=== PATIENT | female | born 2000 | race Caucasian/White ===

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

== ENCOUNTER 2020-08-14 10:47 | Emergency (ER) | payer OTHER ==
[2020-08-14 11:00] VITALS: BMI 23.9
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
[2020-08-14] MEDS ORDERED: SODIUM CHLORIDE 1,000 ML IV STA (11:20)
[2020-08-14] MEDS ORDERED: METOCLOPRAMIDE HCL INJECTION 10 MG/2 ML VIAL IVPB ONE (11:20)
[2020-08-14] MEDS ORDERED: ACETAMINOPHEN 1000 MG/100 ML VIAL (NON FORMULARY) IVPB ONE (11:20)
--- NOTE | 2020-08-14 11:23 | PDOC ---
History of Present Illness - General Chief Complaint: Vomiting/Diarrhea Stated Complaint: VOMITING/NAUSEA Time Seen by Provider: 08/14/20 11:02 History Source: Patient Exam Limitations: No Limitations Past History - Travel History Traveled outside of the country in the last 30 days: No Close contact w/someone who was outside of country & ill: No - Medical History Allergies/Adverse Reactions: Allergies Allergy/AdvReac Type Severity Reaction Status Date / Time No Known Allergies Allergy Verified 08/14/20 10:54 Home Medications: Ambulatory Orders Ondansetron [Zofran Odt -] 4 mg SL TID #10 tab.sl 08/14/20 COPD: No - Reproductive History Is Patient Now?: Yes - Immunization History Immunization Up to Date: Yes - Psycho-Social/Smoking History Smoking History: Current every day smoker Have you smoked in the past 12 months: Yes Number of Cigarettes Smoked Daily: 0 Information on smoking cessation initiated: Yes - Substance Abuse Hx (Audit-C & DAST Scrn) How often the patient has a drink containing alcohol: Monthly or less Number of drinks the patient has on a typical day: 1 or 2 How often the patient has six or more drinks on one occasion: Never Score: In Men: 4 or > Positive; In Women: 3 or > Positive: 1 Screen Result (Pos requires Nsg. Audit-10AR): Negative In the last yr the pt used illegal drug/Rx for NonMed reason: No Score: Yes response is considered Positive: 0 Screen Result (Positive result requires Nsg. DAST-10): Negative Review of Systems - Review of Systems Able to Perform ROS?: Yes Comments:: 08/14/20 11:17 CONSTITUTIONAL: Absent: fever, chills, diaphoresis, generalized weakness, malaise, loss of appetite HEENT: Absent: rhinorrhea, nasal congestion, throat pain, throat swelling, difficulty swallowing, mouth swelling, ear pain, eye pain, visual Changes CARDIOVASCULAR: Absent: chest pain, loss of consciousness, palpitations, irregular heart rate, peripheral edema RESPIRATORY: Absent: cough, shortness of breath, dyspnea with exertion, orthopnea, wheezing, stridor, hemoptysis GASTROINTESTINAL: Present: abdominal pain, nausea, vomiting. Absent: abdominal distension, diarrhea, constipation, melena, hematochezia GENITOURINARY: Absent: dysuria, frequency, urgency, hesitancy, hematuria, flank pain, genital pain MUSCULOSKELETAL: Absent: myalgia, arthralgia, joint swelling SKIN: Absent: rash, itching, pallor HEMATOLOGIC/IMMUNOLOGIC: Absent: easy bleeding, easy bruising, lymphadenopathy, frequent infections ENDOCRINE: Absent: unexplained weight gain, unexplained weight loss, heat intolerance, cold intolerance NEUROLOGIC: Absent: headache, focal weakness or paresthesias, dizziness, unsteady gait, seizure, mental status changes, bladder or bowel incontinence PSYCHIATRIC: Absent: anxiety, depression, suicidal or homicidal ideation, hallucinations. Is the patient limited [place] proficient: No *Physical Exam - Vital Signs Last Vital Signs Temp Pulse Resp BP Pulse Ox 98.2 F 80 18 125/68 98 08/14/20 10:55 08/14/20 10:55 08/14/20 10:55 08/14/20 10:55 08/14/20 10:55 - Physical Exam 08/14/20 11:18 GENERAL: Well developed, well nourished. Awake and alert. No acute distress. HEENT: Normocephalic, atraumatic. PERRLA, EOMI. No conjunctival pallor. Sclera are non- icteric. Moist mucous membranes. NECK: Supple. Full ROM. CARDIOVASCULAR: Regular rate and rhythm. No murmurs, rubs, or gallops. Distal pulses are 2+ and symmetric. PULMONARY: No evidence of respiratory distress. Lungs clear to auscultation bilaterally. No wheezing, rales or rhonchi. ABDOMINAL: Diffuse TTP of abdomen with focal LUQ pain. Soft. Non-distended. Normoactive bowel sounds. MUSCULOSKELETAL Normal range of motion at all joints. No bony deformities or tenderness. No CVA tenderness. EXTREMITIES: No cyanosis. No clubbing. No edema. No calf tenderness. SKIN: Warm and dry. Normal capillary refill. No rashes. No jaundice. NEUROLOGICAL: Alert, awake, appropriate. Cranial nerves 2-12 intact. No deficits to light t ouch and temperature in face, upper extremities and lower extremities. No motor deficits in the in face, upper extremities and lower extremities. Normoreflexic in the upper and lower extremities. Normal speech. Toes are down-going bilaterally. Gait is normal without ataxia. PSYCHIATRIC: Cooperative. Good eye contact. Appropriate mood and affect. ED Treatment Course - LABORATORY CBC & Chemistry Diagram: 08/14/20 11:41 08/14/20 11:41 Medical Decision Making - Medical Decision Making 08/14/20 11:21 The patient is a 19-year-old female G1, P0, LMP 06/07/2020, presents to the ER with nausea vomiting and abdominal pain. She states her symptoms have been going on for approximately 2 weeks, however the pain worsened this morning so she came to the ER for evaluation. She states she has been throwing up yellow bile. She is unable to keep anything down. She has not yet seen an DIETARY DIRECTOR for this . Denies fevers, chills, diarrhea, constipation, chest pain and difficulty breathing, dysuria, hematuria, vaginal discharge and vaginal bleeding. A/P: Hyperemesis On exam patient is diffusely tender to the abdomen with worsening pain in the left upper quadrant consistent with vomiting. Will obtain basic labs, ultrasound Fluids, Reglan, Benadryl and IV Tylenol ordered for pain control Reevaluate 08/14/20 13:19 Ultrasound shows IUP 9 weeks 5 days with heart rate of 156. No ovarian cysts. Lab work unremarkable, urine negative. Patient tolerating p.o. after medication Discharge home with DIETARY DIRECTOR follow-up. I discussed the physical exam findings, ancillary test results and final diagnoses with the patient. I answered all of the patient's questions. The patient was satisfied with the care received and felt comfortable with the discharge plan and treatment plan. The Patient agrees to follow up with the primary care physician/specialist within 24-72 hours. Return precautions were given. Discharge - Discharge Information Problems reviewed: Yes Clinical Impression/Diagnosis: Hyperemesis gravidarum Condition: Stable Disposition: HOME - Admission No - Follow up/Referral Referrals: Nick Disla MD [Primary Care Provider] - Dario Delong MD [Staff Physician] - - Patient Discharge Instructions Patient Printed Discharge Instructions: DI for Hyperemesis Gravidarum Additional Instructions: You were seen for your nausea and vomiting today. You were with a single within the uterus with a heart rate of 156. You may take Zofran every 8 hours needed for nausea or vomiting. Please drink plenty of fluids. Eat bland foods today to prevent vomiting. Please follow-up with DIETARY DIRECTOR. A referral has been provided to you. Trying follow-up within the week. Return to the ER for vaginal bleeding, increasing nausea vomiting, abdominal pain if you have any changes in your symptoms. - Post Discharge Activity
[2020-08-14] MEDS ORDERED: METOCLOPRAMIDE HCL INJECTION 10 MG/2 ML VIAL ONE (11:53)
[2020-08-14] MEDS ORDERED: ACETAMINOPHEN INJECTION 100 ML IVPB ONE (11:54)
[2020-08-14 12:36] LABS: BASO % 0.5 % (0-2.0); EOS % 0.8 % (0-4.5); HEMATOCRIT 39.3 % (32.4-45.2); HEMOGLOBIN 13.2 GM/dL (10.7-15.3); LYMPH % 17.1 % (8-40); MCH 30.8 pg (25.7-33.7); MCHC 33.6 g/dl (32.0-36.0); MEAN CELL VOLUME 91.6 fl (80-96); MEAN PLT VOLUME 9.3 fl (7.5-11.1); MONO % 6.8 % (3.8-10.2); NEUT % 74.8 % (42.8-82.8); PLATELET COUNT 248 K/MM3 (134-434); RBC 4.29 M/mm3 (3.60-5.2); RDW 13.7 % (11.6-15.6); WHITE BLOOD COUNT 7.2 K/mm3 (4.0-10.0)
[2020-08-14 12:39] LABS: PH,URINE 7.5 (5.0-8.0); URINE APPEARANCE CLEAR; URINE BILIRUBIN NEGATIVE (NEGATIVE); URINE COLOR YELLOW; URINE GLUCOSE (UA) NEGATIVE (NEGATIVE); URINE KETONE NEGATIVE (NEGATIVE); URINE LEUK ESTERASE NEGATIVE (NEGATIVE); URINE NITRITE NEGATIVE (NEGATIVE); URINE PROTEIN NEGATIVE (NEGATIVE); URINE UROBILINOGEN 0.2 mg/dL (0.2-1.0)
[2020-08-14 13:13] LABS: ALBUMIN 3.8 g/dl (3.4-5.0); BILIRUBIN,TOTAL 0.4 mg/dL (0.2-1); BLOOD UREA NITROGEN 6.6 mg/dL (7-18); CALCIUM 9.5 mg/dL (8.5-10.1); CREATININE 0.6 mg/dL (0.55-1.3); POTASSIUM 4.2 mmol/L (3.5-5.1); TOT PROT 7.5 g/dl (6.4-8.2)
[2020-08-14 13:35] VITALS: BP 122/68; PULSE 72; TEMP 98.6
== END 2020-08-14 13:35 | disposition home or self-care (01) ==
LOC: JER 10:47
PROC: 3E0333Z Introduction of Anti-inflammatory into Peripheral Vein, Percutaneous Approach (ICD-10-PCS; principal; 2020-08-14)
PROC: 3E033GC Introduction of Other Therapeutic Substance into Peripheral Vein, Percutaneous Approach (ICD-10-PCS; 2020-08-14)
PROC: 3E0337Z Introduction of Electrolytic and Water Balance Substance into Peripheral Vein, Percutaneous Approach (ICD-10-PCS; 2020-08-14)
DX: O21.1 Hyperemesis gravidarum with metabolic disturbance (principal)
CPT/HCPCS: 36415; 76817-TC; 80053; 81003; 84702; 85025; 87086; 99284-25; J0131

== ENCOUNTER 2021-02-28 13:15 | Inpatient (IN) | payer OTHER ==
[2021-02-28 16:10] LABS: URINE BARBITURATES NEGATIVE ng/ml (CUTOFF=200)
[2021-02-28 16:12] LABS: COCAINE, UR NEGATIVE ng/ml (CUTOFF=300); METHADONE, UR NEGATIVE ng/ml (CUTOFF=300); OPIATES, URI NEGATIVE ng/ml (CUTOFF=300); PHENCYCLIDINE,URINE NEGATIVE ng/ml (CUTOFF=25); URINE AMPHETAMINES NEGATIVE ng/ml (CUTOFF=500); URINE BENZODIAZEPINES NEGATIVE ng/ml (CUTOFF=200)
[2021-02-28] MEDS ORDERED: DINOPROSTONE 10 MG VAGINAL SUPPOSITORY VG ONE (16:24)
[2021-02-28 17:07] VITALS: BMI 35.2
[2021-02-28] MEDS: DEXTROSE 5%-LACTATED RINGERS 1,000 ML IV SCH (17:10)
[2021-02-28 17:17] LABS: BASO % 0.4 % (0-2.0); EOS % 1.5 % (0-4.5); HEMATOCRIT 32.5 % (32.4-45.2); HEMOGLOBIN 10.6 GM/dL (10.7-15.3); LYMPH % 17.9 % (8-40); MCH 28.2 pg (25.7-33.7); MCHC 32.6 g/dl (32.0-36.0); MEAN CELL VOLUME 86.4 fl (80-96); MEAN PLT VOLUME 9.5 fl (7.5-11.1); MONO % 11.4 % (3.8-10.2); NEUT % 68.8 % (42.8-82.8); PLATELET COUNT 320 K/MM3 (134-434); RBC 3.75 M/mm3 (3.60-5.2); RDW 15.7 % (11.6-15.6); WHITE BLOOD COUNT 7.9 K/mm3 (4.0-10.0)
[2021-02-28 17:21] LABS: URINE APPEARANCE CLEAR; URINE BILIRUBIN NEGATIVE (NEGATIVE); URINE COLOR YELLOW; URINE GLUCOSE (UA) NEGATIVE (NEGATIVE); URINE KETONE NEGATIVE (NEGATIVE); URINE LEUK ESTERASE NEGATIVE (NEGATIVE); URINE NITRITE NEGATIVE (NEGATIVE); URINE PROTEIN NEGATIVE (NEGATIVE); URINE UROBILINOGEN 0.2 mg/dL (0.2-1.0)
[2021-02-28 17:23] LABS: INR 0.92 (0.83-1.09); PROTHROMBIN TIME (PATIENT) 11.4 SEC (9.7-13.0)
[2021-02-28 17:26] LABS: ACTIVATED PTT 23.2 SECONDS (25.2-36.5)
[2021-02-28 17:36] LABS: CALCIUM 9.2 mg/dL (8.5-10.1)
[2021-02-28 17:41] LABS: CREATININE 0.6 mg/dL (0.55-1.3)
[2021-02-28 17:43] LABS: BLOOD UREA NITROGEN 6.9 mg/dL (7-18)
[2021-02-28] MEDS ORDERED: PENICILLIN G POTASSIUM 5,000,000 (5Mm) UNIT VIAL IVPB ONE ×2 (17:53→18:00)
[2021-02-28] MEDS ORDERED: PENICILLIN G POTASSIUM 20,000,000 (20Mm) UNITS VIAL IVPB ONE (17:53)
[2021-02-28 18:33] LABS: HIV INTERPRETATION NEGATIVE (NEGATIVE)
[2021-02-28] MEDS: PENICILLIN G POTASSIUM 2,500,000 UNIT in DEXTROSE 5%-WATER - 100 ML IVPB SCH (22:00)
[2021-03-01] MEDS: PENICILLIN G POTASSIUM 2,500,000 UNIT in DEXTROSE 5%-WATER - 100 ML IVPB SCH ×3 (02:00→09:49)
[2021-03-01] MEDS ORDERED: BUTORPHANOL TARTRATE 2 MG/ML VIAL IVPB ONE (05:10)
[2021-03-01] MEDS ORDERED: PROMETHAZINE HCL 25 MG/1 ML VIAL IVPB ONE (05:10)
[2021-03-01] MEDS ORDERED: OXYTOCIN 30 UNITS in 0.9% NS 30 UNIT/500 ML INFUS.BAG IVPB ONE (05:28)
[2021-03-01] MEDS ORDERED: BUTORPHANOL TARTRATE 2 MG/ML VIAL ONE (05:28)
[2021-03-01] MEDS ORDERED: PROMETHAZINE HCL 25 MG/1 ML VIAL ONE (05:29)
[2021-03-01] MEDS ORDERED: OXYTOCIN 30 UNITS in 0.9% NS 30 UNIT/500 ML INFUS.BAG IVPB SCH (05:30)
[2021-03-01] MEDS: DEXTROSE 5%-LACTATED RINGERS 1,000 ML IV SCH (05:51)
[2021-03-01] MEDS: ELECTROLYTE-148 SOLN 1,000 ML IV SCH ×2 (07:55→09:58)
[2021-03-01] MEDS ORDERED: PCA PUMP NR ONE (07:55)
[2021-03-01] MEDS ORDERED: NALOXONE HCL 0.4 MG/ML VIAL IVPUSH PRN (08:04)
[2021-03-01] MEDS ORDERED: BUPIVACAINE HCL/PF 0.25% (2.5MG/ML) 10 ML VIAL ONE (08:05)
[2021-03-01] MEDS: FENTANYL/BUPIVACAINE/NS/PF - PCEA - 50 ML DISP.SYRIN EP SCH (08:25)
[2021-03-01] MEDS ORDERED: FENTANYL/BUPIVACAINE/NS/PF - PCEA - 50 ML DISP.SYRIN EP ONE (08:31)
[2021-03-01] MEDS ORDERED: morphine SULFATE/PF 0.5 MG/ML (2cc Syringe - QUVA) ONE (12:02)
[2021-03-01] MEDS ORDERED: LIDO 2%/EPI 1:200000 PRESRVFRE (20 ML SDVIAL) ONE (12:05)
[2021-03-01] MEDS ORDERED: CITRIC ACID/SODIUM CITRATE 30 ML UNIT-DOSE CUP PO ONE (12:15)
[2021-03-01] MEDS ORDERED: oxyCODONE HCL 5 MG TABLET PO PRN (13:13)
[2021-03-01] MEDS ORDERED: diphenhydrAMINE HCL 25 MG CAPSULE (FP) PO PRN (13:13)
[2021-03-01] MEDS ORDERED: METHYLERGONOVINE MALEATE 0.2 MG/1 ML AMP IM PRN (13:13)
[2021-03-01] MEDS ORDERED: BENZOCAINE 28 GM HEMORRHOIDAL OINTMENT TP PRN (13:13)
[2021-03-01] MEDS ORDERED: WITCH HAZEL 50% (TUCKS) 40 PAD/JAR PAD TP PRN (13:13)
[2021-03-01] MEDS ORDERED: BENZOCAINE 20% 57 GM BOTTLE TP PRN (13:13)
[2021-03-01] MEDS ORDERED: OXYTOCIN 20 UNITS in 0.9% NS 20 UNIT/1,000 ML INFUS.BAG IV SCH (13:15)
[2021-03-01] MEDS ORDERED: DEXTROSE 5%-LACTATED RINGERS 1,000 ML IV SCH (13:15)
[2021-03-01] MEDS ORDERED: ONDANSETRON 4 MG/2 ML VIAL IVPUSH PRN (13:34)
[2021-03-01] MEDS: IBUPROFEN 800 MG/8 ML IJ IVPB PRN (14:09)
[2021-03-01] MEDS: CEFAZOLIN 1 GM/D5W 1 GM/50 ML BAG IVPB SCH (17:55)
[2021-03-02] MEDS: CEFAZOLIN 1 GM/D5W 1 GM/50 ML BAG IVPB SCH (01:40)
[2021-03-02] MEDS: IBUPROFEN 800 MG/8 ML IJ IVPB PRN (05:52)
[2021-03-02 08:21] LABS: BASO % 0.5 % (0-2.0); EOS % 0.6 % (0-4.5); HEMATOCRIT 29.1 % (32.4-45.2); HEMOGLOBIN 9.9 GM/dL (10.7-15.3); LYMPH % 13.7 % (8-40); MCH 29.3 pg (25.7-33.7); MCHC 34.1 g/dl (32.0-36.0); MEAN CELL VOLUME 85.8 fl (80-96); MEAN PLT VOLUME 9.1 fl (7.5-11.1); MONO % 8.7 % (3.8-10.2); NEUT % 76.5 % (42.8-82.8); PLATELET COUNT 290 K/MM3 (134-434); RBC 3.39 M/mm3 (3.60-5.2); RDW 15.8 % (11.6-15.6); WHITE BLOOD COUNT 10.2 K/mm3 (4.0-10.0)
[2021-03-02] MEDS: ENOXAPARIN NA (PORCINE) 40 MG/0.4 ML DISP.SYRIN SQ SCH (09:09)
[2021-03-02] MEDS ORDERED: BISACODYL 10 MG SUPP.RECT PR PRN (13:13)
[2021-03-02] MEDS: SIMETHICONE 80 MG TAB.CHEW (FP) PO PRN ×2 (13:32→16:25)
[2021-03-02] MEDS: ACETAMINOPHEN 325 MG TABLET (FP) PO PRN ×3 (13:32→20:41)
[2021-03-02] MEDS: oxyCODONE HCL 5 MG TABLET PO PRN ×2 (13:33→16:26)
[2021-03-02] MEDS: IBUPROFEN 600 MG TABLET (FP) PO PRN (20:41)
[2021-03-03] MEDS: oxyCODONE HCL 5 MG TABLET PO PRN ×2 (01:06→18:09)
[2021-03-03] MEDS: SIMETHICONE 80 MG TAB.CHEW (FP) PO PRN ×4 (01:06→22:54)
[2021-03-03] MEDS: IBUPROFEN 600 MG TABLET (FP) PO PRN ×4 (01:07→22:53)
[2021-03-03] MEDS: ACETAMINOPHEN 325 MG TABLET (FP) PO PRN ×3 (08:43→22:53)
[2021-03-03] MEDS: ENOXAPARIN NA (PORCINE) 40 MG/0.4 ML DISP.SYRIN SQ SCH (10:10)
[2021-03-03] MEDS: FENTANYL/BUPIVACAINE/NS/PF - PCEA - 50 ML DISP.SYRIN EP SCH (17:35)
[2021-03-03] MEDS ORDERED: SENNOSIDES/DOCUSATE COMBO (SENNA PLUS) TABLET (UD) PO PRN (22:00)
[2021-03-04 08:26] VITALS: BP 119/73; PULSE 856; TEMP 98.2
[2021-03-04 08:31] LABS: BASO % 0.9 % (0-2.0); EOS % 5.1 % (0-4.5); HEMATOCRIT 28.3 % (32.4-45.2); HEMOGLOBIN 9.5 GM/dL (10.7-15.3); LYMPH % 19.8 % (8-40); MCH 29.2 pg (25.7-33.7); MCHC 33.4 g/dl (32.0-36.0); MEAN CELL VOLUME 87.4 fl (80-96); MEAN PLT VOLUME 9.2 fl (7.5-11.1); MONO % 7.9 % (3.8-10.2); NEUT % 66.3 % (42.8-82.8); PLATELET COUNT 349 K/MM3 (134-434); RBC 3.24 M/mm3 (3.60-5.2); RDW 16.4 % (11.6-15.6); WHITE BLOOD COUNT 9.2 K/mm3 (4.0-10.0)
[2021-03-04] MEDS: IBUPROFEN 600 MG TABLET (FP) PO PRN (09:11)
[2021-03-04] MEDS: SIMETHICONE 80 MG TAB.CHEW (FP) PO PRN (09:11)
[2021-03-04] MEDS: ENOXAPARIN NA (PORCINE) 40 MG/0.4 ML DISP.SYRIN SQ SCH (09:13)
[2021-03-04] MEDS: ACETAMINOPHEN 325 MG TABLET (FP) PO PRN (09:13)
== END 2021-03-04 11:05 | disposition home or self-care (01) | DRG 540 ==
LOC: JDEL 13:15 → JLDR 15:30 → J3W 03-01 15:30
PROVIDERS: ADMIT Obstetrics & Gynecology; ATTEND Obstetrics & Gynecology
PROC: 10D00Z1 Extraction of Products of Conception, Low, Open Approach (ICD-10-PCS; principal; 2021-03-01)
DX: O62.0 Primary inadequate contractions (principal); O42.913 Preterm premature rupture of membranes, unspecified as to length of time between rupture and onset of labor, third trimester; Z3A.38 38 weeks gestation of pregnancy; Z37.0 Single live birth
CPT/HCPCS: 36415; 59025; 76819-TC; 80048; 80307; 81003; 85025; 85610; 85730; 86780; 86850; 86900; 86901; 87086; 87389; 88307-TC; C9803; U0003; U0005